=== PATIENT | female | born 1960 | race Caucasian/White ===

== ENCOUNTER → 2021-03-14 09:51 | Outpatient (BNVA) | payer BC, SELFPAY | PROVIDERS: PCP Internal Medicine; Visit Provider Hospitalist ==

== ENCOUNTER → 2021-05-16 10:48 | Outpatient (BNVA) | payer BC, SELFPAY | PROVIDERS: PCP Internal Medicine; Visit Provider Hospitalist ==

== ENCOUNTER → 2021-08-14 10:51 | Outpatient (BNVA) | payer BC, SELFPAY | PROVIDERS: PCP Internal Medicine; Visit Provider Hospitalist | DX: G47.33 Obstructive sleep apnea (adult) (pediatric) (principal); R40.0 Somnolence; Z99.89 Dependence on other enabling machines and devices; Z23 Encounter for immunization | CPT/HCPCS: 90686 ==

== ENCOUNTER 2023-07-16 10:03 | Outpatient (AMB) | payer BC, SELFPAY ==
[2023-07-16 10:08] VITALS: PULSE 75; O2SAT 94; BMI 34.7
--- NOTE | 2023-07-16 10:08 | A.OFFVIS_ITS ---
Intake Vital Signs 07/16/23 10:08 Height 5 ft 2 in Weight 190 lb BMI 34.7 Pulse 75 Pulse Source Pulse Oximeter Pulse Oximetry (%) 94 Oxygen Delivery Method Room Air Intake Visit Reasons: COPD Psychologist Social Required: No Allergies No Known Allergies Allergy (Verified 07/16/23 10:09) HPI HPI Comments History of Present Illness0 Details The patient is a 63-year-old woman with a known history of thyroid disease. Has been experiencing increasing daytime drowsiness. For the patient has documented significant snoring by her significant other and also family. Also, so she underwent a colonoscopy she was told she has significant snoring and likely had obstructive sleep apnea. Her Nome score is elevated 10/12. She initially thought that her drowsiness was from underlying hypothyroidism. However, after proper treatment of the hypothyroidism she still complained of the drowsiness. The patient has never had a sleep study. At this point the patient is a great candidate for a home sleep study. 08/14/2021 the patient is here for pulmonary follow-up visit. Overall she is feeling a better. She started CPAP therapy has been very effective in beneficial. She does use it for more than 4 hours a night. Her current therapist APAP 6-16 with a ramp of 4. I did download machine is seems like her average pressure is actually 15 cm. She does have a F20 mask the sometimes leaks when she moves around. I think she would do better with the 30 mask. I will request from her [employer]. In the meantime her AHI is down to 0.9 which is perfect. I will not increase the pressures any further to make sure that she continues tolerated well. If however she feels the pressures are too low we can always increase some she can always call the office and we can make those arrangements online she still has episodes of daytime drowsiness but much less. Her lower extremity edema social getting better. Otherwise patient is without any other complaints. 07/16/2023 the patient is here for pulmon rahel follow-up visit. Overall she is doing a lot better. She continues use her CPAP every night. The CPAP therapy has been affective and beneficial. She has very comfortable mask, F30. She is waking up rested. Nome score is normal. We did download her data and her AHI is down to about 1.0. she has good fitting mask. At this point will continue with current pressures as they are working for her well. She is getting supplies regularly from her [employer]. Will follow-up in a year's time. [facility], [facility] Medical History (Updated 05/08/22 @ 11:41 by Shreyas Ovalles MD) MINOO (obstructive sleep apnea) Social History (Updated 07/16/23 @ 10:10 by BUZZ Velásquez) Patient Tobacco Use Status: Never used Tobacco Review of Systems Const Denies daytime sleepiness, Denies night sweats, Denies snoring and Denies stops breathing during sleep ENT Denies change in voice, Denies lip swelling, Denies mouth pain, Reports nasal congestion, Reports nasal discharge and Denies tongue swelling Card Denies chest pain Resp Reports cough and Denies snoring GI Denies abdominal pain Musc Denies no additional complaints Neuro Denies Neuro-related abnormal movements Psych Denies no additional complaints Agustin/Lymph Denies easy bleeding and Denies lymphadenopathy Aller/Immun Denies lip swelling and Denies tongue swelling Physical Exam Vital Signs: Last Vital Signs Pulse 75 07/16/23 10:08 Pulse Ox 94 07/16/23 10:08 Oxygen Delivery Method Room Air 07/16/23 10:08 BMI result Body Mass Index 34.7 Const General: alert Neck Neck: Yes normal visual inspection, Yes full ROM and Yes no lymphadenopathy Chest Chest palpation & inspection: normal inspection of the chest Resp Auscultation: clear to auscultation bilaterally Cardio Rate: regular rate Rhythm: regular rhythm Heart sounds: S1 normal heart sound present and S2 normal heart sound present GI Palpation (GI): Soft to palpation and nontender Auscultation: normal bowel sounds Skin General skin exam: rashes and/or lesions noted Assessment & Plan Assessment & Plan (1) MINOO (obstructive sleep apnea): Code(s): G47.33 - Obstructive sleep apnea (adult) (pediatric) Plan: Start APAP therapy at this time follow-up in 2-3 months to assess her response to therapy and to make further adjustments. Any issues or concerns the patient can always call or come in earlier to re-evaluate. Plan Continue APAP 6-16, mask to F30, requested from [facility] F/U 12-18 months Coding Level of Care Code Est Pt Level 3 (42382) Diagnoses MINOO (obstructive sleep apnea) G47.33 Time Spent (min) 15
== END 2023-07-16 10:21 | disposition home or self-care (01) ==
PROVIDERS: PCP Internal Medicine; Visit Provider Hospitalist
DX: G47.33 Obstructive sleep apnea (adult) (pediatric) (principal)
CPT/HCPCS: 99213

== ENCOUNTER → 2023-07-16 10:03 | Outpatient (BNVA) | payer BC, SELFPAY | PROVIDERS: PCP Internal Medicine; Visit Provider Hospitalist ==